=== PATIENT | female | born 1955 | race Two or more races ===

== ENCOUNTER 2017-04-07 15:47 | Inpatient (IN) | payer BC, OTHER ==
[~2017-04-07] VITALS: Ht 167.6 cm; Wt 85.1 kg
[2017-04-07] MEDS ORDERED: cloNIDine HCL 0.1 MG TAB PO ONE (16:15)
[2017-04-07 17:25] LABS: Basophils # (auto) 0.1 uL; Basophils % (auto) 0.6 % (0.0-2.0); Eosinophils # (auto) 0.2 uL; Eosinophils % (auto) 1.9 % (0.0-7.0); Hematocrit 38.9 % (36.0-46.0); Hemoglobin 13.1 g/dL (12.2-16.2); Lymphocytes # (auto) 3.2 uL; Mean Corpuscular Hemoglobin 31.3 pg (28.0-32.0); Mean Corpuscular Hgb Conc. 33.6 g/dL (32.0-36.0); Mean Corpuscular Volume 93.2 fL (80.0-100.0); Mean Platelet Volume 7.5 fL (6.9-10.8); Monocytes # (auto) 0.7 uL; Monocytes % (auto) 7.8 % (0.0-12.0); Neutrophils # (auto) 4.4 uL; Neutrophils % (auto) 51.7 % (37.0-80.0); Nucleated Red Blood Cells % 0.1 %; Platelet Count (auto) 265 10^3/uL (140-450); White Blood Cell 8.5 10^3/uL (4.4-10.8)
[2017-04-07 17:51] LABS: Albumin 3.9 g/dL (3.4-5.0); Alkaline Phosphatase 101 U/L (45-117); Anion Gap 10 (5-15); Aspartate Aminotransferase 22 U/L (15-37); BUN/Creatinine Ratio 16.4; Bilirubin, Total 0.5 mg/dL (0.2-1.0); Blood Urea Nitrogen 9 mg/dL (7-18); Calcium 8.2 mg/dL (8.5-10.1); Carbon Dioxide 23 mmol/L (21-32); Chloride 103 mmol/L (98-107); GFR African American 145 mL/min; GFR Non-African American 119 mL/min; Glucose 152 mg/dL (74-106); Magnesium 2.2 mg/dL (1.6-2.6); Potassium 3.8 mmol/L (3.5-5.1); Sodium 136 mmol/L (136-145); Total Protein 7.5 g/dL (6.4-8.2)
[2017-04-07] MEDS ORDERED: MORPHINE SULF INJ 2 MG/ML SYRINGE 1ML IV ONE (19:15)
[2017-04-07] MEDS ORDERED: PROMETHAZINE HCL 25 MG/ML 1ML IV ONE (19:15)
[2017-04-07] MEDS ORDERED: TEMAZEPAM 15 MG CAP PO PRN (20:45)
[2017-04-07] MEDS ORDERED: ONDANSETRON HCL 4 MG/2 ML VIAL IV PRN (20:45)
[2017-04-07] MEDS ORDERED: ACETAMINOPHEN 325 MG TAB PO PRN (20:45)
[2017-04-07] MEDS ORDERED: ENOXAPARIN SOD 40 MG/0.4 ML SYRINGE SC ONE (20:45)
[2017-04-07] MEDS ORDERED: HYDROcodone-ACET 5/325MG TAB PO PRN (20:45)
[2017-04-07] MEDS: MORPHINE SULF INJ 2 MG/ML SYRINGE 1ML IV PRN (21:48)
[2017-04-07 22:00] VITALS: BP 129/74
[2017-04-07 22:25] VITALS: BP 129/74
[2017-04-07] MEDS ORDERED: cloNIDine HCL 0.1 MG TAB PO PRN (22:30)
[2017-04-07] MEDS ORDERED: METOPROLOL TARTRATE 25 MG TAB PO ONE (22:30)
[2017-04-07] MEDS ORDERED: PROMETHAZINE HCL 25 MG/ML 1ML ONE (22:31)
[2017-04-07] MEDS: FAMOTIDINE 20 MG TAB PO SCH (23:22)
[2017-04-08] VITALS (7 sets, daily range): BP systolic 127–159; BP diastolic 66–92
[2017-04-08] MEDS: MORPHINE SULF INJ 2 MG/ML SYRINGE 1ML IV PRN ×2 (03:49→14:18)
[2017-04-08 06:01] LABS: Basophils # (auto) 0 uL; Basophils % (auto) 0.4 % (0.0-2.0); Eosinophils # (auto) 0.2 uL; Eosinophils % (auto) 2.3 % (0.0-7.0); Hematocrit 37.7 % (36.0-46.0); Hemoglobin 12.6 g/dL (12.2-16.2); Lymphocytes # (auto) 4.5 uL; Lymphocytes % (auto) 51.9 % (10.0-50.0); Mean Corpuscular Hemoglobin 31.4 pg (28.0-32.0); Mean Corpuscular Hgb Conc. 33.3 g/dL (32.0-36.0); Mean Corpuscular Volume 94.1 fL (80.0-100.0); Mean Platelet Volume 7.9 fL (6.9-10.8); Monocytes # (auto) 0.7 uL; Monocytes % (auto) 7.8 % (0.0-12.0); Neutrophils # (auto) 3.3 uL; Neutrophils % (auto) 37.6 % (37.0-80.0); Nucleated Red Blood Cells % 0.1 %; Platelet Count (auto) 250 10^3/uL (140-450); White Blood Cell 8.7 10^3/uL (4.4-10.8)
[2017-04-08 06:03] LABS: Albumin 3.2 g/dL (3.4-5.0); BUN/Creatinine Ratio 12.5; Potassium 3.8 mmol/L (3.5-5.1)
[2017-04-08 06:06] LABS: Bilirubin, Total 0.4 mg/dL (0.2-1.0)
[2017-04-08] MEDS ORDERED: ASPirin 81 mg TAB PO SCH (10:00)
[2017-04-08] MEDS ORDERED: lamoTRIgine 25 MG TAB PO SCH ×2 (10:00→22:00)
[2017-04-08] MEDS: FAMOTIDINE 20 MG TAB PO SCH ×2 (10:35→22:05)
[2017-04-08] MEDS: ENOXAPARIN SOD 40 MG/0.4 ML SYRINGE SC SCH (10:36)
[2017-04-08] MEDS: METOPROLOL TARTRATE 25 MG TAB PO SCH ×2 (10:40→22:05)
[2017-04-08] MEDS ORDERED: [UNRECOGNIZED DRUG - CODE] PO (11:58)
[2017-04-08] MEDS ORDERED: DIVA500T53 PO (11:58)
[2017-04-08] MEDS ORDERED: LAMO200T2 PO (11:58)
[2017-04-08] MEDS ORDERED: PANT40TA2 PO (11:58)
[2017-04-08] MEDS ORDERED: VORT10TA PO (11:58)
[2017-04-08] MEDS ORDERED: CARI-277 PO (11:58)
[2017-04-08] MEDS ORDERED: HYDR-531 PO (11:58)
[2017-04-08] MEDS ORDERED: LORA-622 PO (11:58)
[2017-04-08] MEDS ORDERED: CLON1TAB PO (11:58)
[2017-04-08] MEDS ORDERED: ATO40T PO (11:58)
[2017-04-08] MEDS ORDERED: clonazePAM 0.5 MG TAB PO PRN (13:30)
[2017-04-08] MEDS ORDERED: clonazePAM 0.5 MG TAB PO ONE (13:30)
[2017-04-08] MEDS ORDERED: ATORVASTATIN 20 MG TAB PO SCH (22:00)
[2017-04-09 05:17] VITALS: BP 148/76
[2017-04-09 07:41] LABS: Cholesterol 194 mg/dL (< 200); HDL Cholesterol 41 mg/dL (40-59); LDL Cholesterol 130 mg/dL (< 100); Triglycerides 160 mg/dL (< 150)
[2017-04-09 08:00] VITALS: BP 152/62
[2017-04-09 09:00] VITALS: BP 152/62
[2017-04-09] MEDS ORDERED: ASPirin 81 mg TAB PO SCH (10:00)
[2017-04-09] MEDS ORDERED: lamoTRIgine 100 MG TAB PO SCH (10:00)
[2017-04-09] MEDS ORDERED: PATIENTS OWN MEDICATION PO SCH ×2 (10:00)
[2017-04-09] MEDS: METOPROLOL TARTRATE 25 MG TAB PO SCH (10:01)
[2017-04-09] MEDS: ENOXAPARIN SOD 40 MG/0.4 ML SYRINGE SC SCH (10:02)
[2017-04-09] MEDS: FAMOTIDINE 20 MG TAB PO SCH (10:02)
[2017-04-09 13:00] VITALS: BP 148/74
[2017-04-09 14:26] VITALS: BP 148/74
== END 2017-04-09 15:30 | disposition home or self-care (01) | DRG 948 ==
LOC: ER 15:55 → OVERFLOW 15:56 → WEST WING 22:25
PROVIDERS: ADMIT Nurse Practitioner; ATTEND Nurse Practitioner
DX: R53.1 Weakness (principal); F20.9 Schizophrenia, unspecified; I11.9 Hypertensive heart disease without heart failure; E78.5 Hyperlipidemia, unspecified; F31.9 Bipolar disorder, unspecified; F41.9 Anxiety disorder, unspecified; G43.909 Migraine, unspecified, not intractable, without status migrainosus; Z82.3 Family history of stroke; Z82.49 Family history of ischemic heart disease and other diseases of the circulatory system
CPT/HCPCS: 36415; 70450; 70551; 71010; 80053; 80061; 83735; 84484; 85025; 85652; 86141; 93005; 93886; 96372; 96374; 96375; J2405